=== PATIENT | male | born 1980 | race Caucasian/White ===

== ENCOUNTER 2016-12-04 13:56 | Inpatient (IN) | payer OTHER ==
[2016-12-04] MEDS ORDERED: LIDOCAINE W/ SODIUM BICARB 0.5 ML SYR ONE ×2 (15:08→15:09)
[2016-12-04] MEDS ORDERED: Lactated Ringers 1,000 ML PRIMARY IV ONE (15:09)
[2016-12-04] MEDS ORDERED: Sodium Chloride 0.9% 100 ML IV ONE (15:57)
[2016-12-04] MEDS ORDERED: ERTAPENEM 1 GM VIAL ONE (15:57)
--- NOTE | 2016-12-04 15:58 | DI ---
CT ABD W/CN AND PELVIS W/CN,12/04/2016 1:59 PM: Clinical History: Abdominal pain Previous Exam: None available. Findings: Multiple helically acquired CT images are obtained through the abdomen and pelvis following the intra venous demonstration of contrast, and demonstrate mild diffuse fatty infiltration of the liver. The l blake bases are clear. The adrenals, kidneys, spleen, pancreas and gallbladder are unremarkable. There is prominence of the appendix and terminal ileum with a large amount of surrounding fat strandi ng. The appendix itself measures 8 mm. There is some free fluid within the deep pelvis worrisome for a ruptured appendix. There is an area w hich is bounded by the cecum, the appendix and the ileum with some surrounding enhancement. This area measures approximately 2.4 cm in diameter The urinary bladder is unremarkable. The skeletal structures are unremarkable except for some very mi ld degenerative changes of the lumbar spine. Impression: Acute appendicitis with a likely 2.4 cm abscess in the right lower quadrant.
[2016-12-04] MEDS ORDERED: IPRATROPIUM/ALBUTEROL SULFATE 3 ML NEB NEB ONE ×2 (16:01→16:02)
[2016-12-04] MEDS ORDERED: fentaNYL Inj 100 MCG/2 ML VIAL IVP PRN (16:05)
[2016-12-04] MEDS ORDERED: ONDANSETRON 4 MG/2 ML VIAL IVP PRN ×3 (16:05→19:05)
[2016-12-04] MEDS ORDERED: NORMAL SALINE 10 ML SYRINGE FLUSH IVP PRN ×2 (16:05→17:26)
[2016-12-04] MEDS ORDERED: ATROPINE SULFATE 0.4 MG/1 ML VIAL IVP PRN (16:05)
[2016-12-04] MEDS ORDERED: Ondansetron ODT Tab 8 MG TAB PO PRN (16:05)
[2016-12-04] MEDS ORDERED: MIDAZOLAM 5 MG/1 ML ONE (16:10)
[2016-12-04] MEDS ORDERED: fentaNYL Inj 250 MCG/5 ML VIAL ONE (16:10)
[2016-12-04] MEDS ORDERED: KETAMINE 100 MG/1 ML - 5 ML ONE (16:11)
[2016-12-04] MEDS ORDERED: DEXAMETHASONE PF 10 MG/1 ML VIAL ONE (16:13)
[2016-12-04] MEDS ORDERED: Lactated Ringers 1,000 ML PRIMARY IV SCH (16:15)
[2016-12-04] MEDS ORDERED: SUCCINYLCHOLINE CHLORIDE 20 MG/1 ML - 10 ML ONE (16:18)
[2016-12-04] MEDS ORDERED: ROCURONIUM 10 MG/1 ML - 5 ML VIAL IVP ONE (16:18)
--- NOTE | 2016-12-04 16:21 | PDOC ---
History and Physical - History of Present Illness Date and Time of Service: 10/04/2016 at 1615 Chief Complaint: Acute appendicitis History of Present Illness: There is a 36-year-old male whose a 10 day history of right lower quadrant abdominal pain. Is start off with feeling like he is constipated. He subsequently has developed more significant pain. He went into the walk-in clinic where he is found to have a tender the right lower quadrant. Subsequent he had a CT scan. The CT scan showed acute appendicitis. Patient denies fever or chills. Patient's white count was 12.4. He had normal hemoglobin. All labs were otherwise unremarkable. Past Medical History Medical History: Patient denies any significant medical problems. He states he has a touch asthma but does not use any rescue inhalers Tobacco Use: Never Smoker Substance Use Type: None Medication / Allergies Allergies/Adverse Reactions: Allergies Allergy/AdvReac Type Severity Reaction Status Date / Time No Known Drug Allergies Allergy NOT Verified 12/04/16 15:18 APPLICABLE Review of Systems - Constitutional Constitutional: REPORTS: Negative System Review - Ear/Nose Exam Ear/Nose Exam: REPORTS: Negative System Review - Respiratory Respiratory: DENIES: Negative System Review, Cough, Sputum, Dyspnea At Rest, Dyspnea with Exertion, Pleuritic Pain, Hemoptysis, Wheezing, Other, See HPI - Cardiovascular Cardiovascular: DENIES: Negative System Review, Chest Pain, Edema, Syncope, Palpitations, Orthopnea, Paroxysmal Nocturnal Dyspnea, Other, See HPI - Gastrointestinal Gastrointestinal / Abdominal: DENIES: Negative System Review, Nausea, Vomiting, Diarrhea, Constipation, Abdominal Pain, Bloody Stool, Poor Appetite, Heartburn, Regurgitation, Bloating, Lactose Intolerance, Melena, Bright Red Blood Per Rectum, Other, See HPI - Musculoskeletal Musculoskeletal: REPORTS: Negative System Review - Neurological Neurologic: REPORTS: Negative System Review - Psychiatric Psychiatric: DENIES: Anhedonia, Anxiety, Depressed, Hopelessness, Hospitalization, Negative System Review, Other, Panic, Sadness, See HPI, Suicidality, Tearfullness Exam - Vitals Vital Signs: Vital Signs Temperature 99.5 F Temperature Source Temporal Artery Scan Pulse Rate 76 Respiratory Rate 18 Blood Pressure 138/90 Oxygen Delivery Method Room Air Height 6 ft 5 in Weight 106.594 kg - Head Head Exam: POSITIVE: Normal Inspection, Normocephalic - Eye Eye Exam: POSITIVE: Normal Appearance, PERRL, EOMI, No Scleral Icterus - Neck Neck Exam: POSITIVE: Full ROM, No Tenderness - Respiratory Respiratory Exam: POSITIVE: Clear to Auscultation - Bilaterally, Breathing Non Labored - Cardiovascular Cardiovascular Exam: POSITIVE: RRR, No Murmur - GI/Abdominal GI/Abdominal Exam: POSITIVE: Non Distended, Firm, Positive for RUQ Pain, No Hepatomegaly, No Splenomegaly - Rectal Rectal Exam: POSITIVE: Deferred - External Exam: POSITIVE: Deferred Exam: POSITIVE: Deferred - Extremities Extremities Exam: POSITIVE: Full ROM, Normal Capillary Refill, No Clubbing Present, No Edema Present - Back Back Exam: POSITIVE: Normal Inspection - Neurological Neurological Exam: POSITIVE: Alert, Oriented x 3, Reflexes Normal, CN II-XII Intact Assessment and Plan - Patient Problems (1) Acute appendicitis with localized peritonitis Current Visit: Yes Status: Acute - Assessment / Plan Additional Assessment/Plan Details: Since patient has been having pain for 10 days and amount of inflammation seen on the CT scan I think the patient needs to undergo an appendectomy. Risks benefits surgery of been explained to him he understands these. Will get him set up at first available time. Patient given 1 g of Invanz
[2016-12-04] MEDS ORDERED: BUPivacaine Liposome/PF (Exparel) Inj 20ml vial INFIL ONE (16:42)
[2016-12-04] MEDS ORDERED: NEOSTIGMINE 1 MG/1 ML - 10 ML ONE (17:18)
[2016-12-04] MEDS ORDERED: GLYCOPYRROLATE 0.2 MG/1 ML VIAL ONE (17:18)
[2016-12-04] MEDS ORDERED: HYDROcodone-APAP 7.5 MG-325 MG TABLET PO PRN (17:26)
[2016-12-04] MEDS ORDERED: NALOXONE 0.4 MG/1 ML VIAL IVP PRN ×2 (17:26→19:05)
[2016-12-04] MEDS ORDERED: KETOROLAC 15 MG/1 ML VIAL IVP PRN (17:26)
[2016-12-04] MEDS ORDERED: MORPHINE SULFATE 2 MG/1 ML IVP PRN ×2 (17:26→19:05)
[2016-12-04] MEDS ORDERED: D5-LR 1,000 ML PRIMARY IV SCH (17:30)
[2016-12-04] MEDS ORDERED: Ertapenem Inj 1 GM in Sodium Chloride 0.9% 100 ML IV SCH (17:30)
--- NOTE | 2016-12-04 17:37 | GEN.OPNOTE ---
Operative Note Surgery Date: 12/04/16 Preoperative Diagnosis: Acute appendicitis with localized peritonitis Postoperative Diagnosis: A ruptured appendix with localized peritonitis Procedure: Appendectomy Surgeon: Americo Brown MD Anesthesia Provider: Susan Potts CRNA Anesthesia Type: General Estimated Blood Loss (mL): 5 Fluids: 1 g of Invanz given preoperatively. Lactated Ringer's please see anesthesia notes in EMR for exact dose Pathology: Appendix was sent for pathology Indications: Patient's been having 10 days of abdominal pain. CT scan shows acute appendicitis with what appears be a rupture the tip of the appendix is a very small abscess formation and also a lot of inflammation but no phlegmon Findings: I ruptured appendix with small abscess Complications: None Operative Summary: Patient is brought in the operating room. Placed supine position. Prepped draped sterile fashion. Timeout performed per protocols. I then made a standard right lower quadrant appendectomy incision. Hemostased and left cautery dissection to Robin Ks tissue left cautery. Did a muscle-splitting incision. Posterior sheath was opened transversely. Carlos retractor was placed. Small bowel swept all way. Patient had some inflammation and had a small abscess walled off by the omentum these adhesions were taken down the fluid was aspirated out. I then followed and inflammation appendix at full itself with back upon itself and was walled off by this terminal ileum. I bluntly dissected this all free exposing the appendix. The mesoappendix was clamped divided and ligated. I follow the mesoappendix down to the base of the appendix. I doubly clamped the appendiceal stump stump and divided the appendix. Appendix is handed off as a surgical specimen. I then tied off the appendix with 0 Vicryl suture. The very tip of the appendix was oversewn with 3 -0 Vicryl continuous running suture. I irrigated until clear. At this point sponge and instrument and needle counts were correct. The posterior sheath was closed with 0 Vicryl contents running suture. Anterior fascia closed with 0 Prolene condition running suture. Skin reapproximated skin anam. I infiltrated 20 mg of Exoprel for postoperative pain control. See well the were no complications Patient Problems - Patient Problem List (1) Acute appendicitis with localized peritonitis Current Visit: Yes Status: Acute
[2016-12-04] MEDS ORDERED: HYDROmorphone 2 MG/1 ML ONE (17:53)
[2016-12-04] MEDS: HYDROmorphone 2 MG/1 ML IVP PRN ×3 (17:55→18:10)
[2016-12-04] MEDS: D5-LR 1,000 ML PRIMARY IV SCH (20:54)
[2016-12-04] MEDS: KETOROLAC 15 MG/1 ML VIAL IVP PRN (20:55)
[2016-12-04] MEDS: HYDROcodone-APAP 7.5 MG-325 MG TABLET PO PRN (21:10)
[2016-12-05] MEDS: HYDROcodone-APAP 7.5 MG-325 MG TABLET PO PRN ×4 (02:20→18:27)
[2016-12-05 06:18] LABS: BLOOD UREA NITROGEN 8 mg/dL (7-22); BUN/CREATININE RATIO 13.33 (6-20); CALCIUM 8.9 mg/dL (8.7-10.7); EST GLOMERULAR FILTRATION > 60 (>60 ml/min/1.73m(2))
[2016-12-05 06:58] LABS: HEMATOCRIT 37.5 % (42.0-52.0); HEMOGLOBIN 12.7 g/dL (14.0-18.0); MEAN CORPUSCULAR HEMOGLOBIN 28.5 PG (27-31); MEAN CORPUSCULAR HGB CONC 33.9 g/dL (33-37); MEAN CORPUSCULAR VOLUME 84.3 FL (80-90); RED BLOOD COUNT 4.45 10^6/uL (4.70-6.10)
[2016-12-05 06:59] LABS: BASOPHILS # (AUTO) 0.01 10*3/UL; BASOPHILS % (AUTO) 0.1 % (0-1); EOSINOPHILS # (AUTO) 0 10*3/UL; EOSINOPHILS % (AUTO) 0 % (0-8); LYMPHOCYTES # (AUTO) 0.79 10*3/uL; MEAN PLATELET VOLUME 9.4 FL (7.4-12.2); MONOCYTES # (AUTO) 1.09 10*3/UL (0.3-0.8); MONOCYTES % (AUTO) 6.6 % (5-15); NEUTROPHILS # (AUTO) 14.63 10*3/UL; NEUTROPHILS % (AUTO) 88.3 % (50-80); PLATELET MORPHOLOGY COMMENT NORMAL MORPHOLOGY (NORM); RBC MORPHOLOGY COMMENT NORMAL MORPHOLOGY (NORM)
[2016-12-05] MEDS: D5-LR 1,000 ML PRIMARY IV SCH (06:59)
[2016-12-05 07:00] LABS: WBC MORPHOLOGY COMMENT SEE COMMENTS (NORM)
[2016-12-05] MEDS: KETOROLAC 15 MG/1 ML VIAL IVP PRN ×2 (07:00→18:26)
--- NOTE | 2016-12-05 08:58 | PDOC(PROG) ---
Subjective Post Op Day: postop day 1 Pain Management: PO Raya Catheter: No Flatus: Yes Diet: Regular Date and Time of Service: 12/05/2016 at 9 AM Interval History: Patient has she feels a lot better. Having no problems Objective : Data - Labs CBC and BMP: 12/05/16 06:01 12/05/16 06:01 Labs - Last 24 Hours: Laboratory Results 12/05/16 Range/Units 06:01 WBC 16.56 H (4.8-10.8) 10^3/uL RBC 4.45 L (4.70-6.10) 10^6/uL Hgb 12.7 L (14.0-18.0) g/dL Hct 37.5 L (42.0-52.0) % MCV 84.3 (80-90) FL MCH 28.5 (27-31) PG MCHC 33.9 (33-37) g/dL RDW Std Deviation 37.5 L (39-50) fL RDW Coeff of Ivis 12.4 (11.5-14.5) % Plt Count 355 H (140-350) 10*3/uL MPV 9.4 (7.4-12.2) FL Immature Gran % (Auto) 0.2 (0-5) % Neut % (Auto) 88.3 H (50-80) % Lymph % (Auto) 4.8 L (10-50) % [place] % (Auto) 6.6 (5-15) % Eos % (Auto) 0 (0-8) % Baso % (Auto) 0.1 (0-1) % Immature Gran # (Auto) 0.04 10*3/UL Neut # (Auto) 14.63 10*3/UL Lymph # (Auto) 0.79 10*3/uL [place] # (Auto) 1.09 H (0.3-0.8) 10*3/UL Eos # (Auto) 0 10*3/UL Baso # (Auto) 0.01 10*3/UL WBC Morphology Comment See comments (NORM) Plt Morphology Comment Normal morphology (NORM) RBC Morph Comment Normal morphology (NORM) Sodium 132 L (135-145) meq/L Potassium 4.4 (3.8-5.2) meq/L Chloride 98 (98-112) meq/L Carbon Dioxide 24 (23-33) meq/L Anion Gap 10 (5-20) BUN 8 (7-22) mg/dL Creatinine 0.6 L (0.70-1.50) mg/dL Estimated GFR > 60 (>60 ml/min/1.73m(2)) BUN/Creatinine Ratio 13.33 (6-20) Glucose 157 H (78-110) mg/dL Calculated Osmolality 274.0 (267-292) mOsm/kg Calcium 8.9 (8.7-10.7) mg/dL - Vital Signs Vital Signs and I&O: Vital Signs - Last Taken Temperature 98 F 12/05/16 08:13 Pulse Rate 63 12/05/16 08:13 Respiratory Rate 16 12/05/16 08:13 Blood Pressure 124/78 12/05/16 08:13 Pulse Ox 93 12/05/16 08:13 Intake and Output (24hr x 4 totals) 12/03/16 12/04/16 12/05/16 12/06/16 05:59 05:59 05:59 05:59 Intake Total 4163 Output Total 1210 300 Balance 2953 -300 Objective : Exam - General General Appearance: No Acute Distress, Cooperative - GI/Abdominal GI/Abdominal Exam: Non Tender, Non Distended, Soft Assessment and Plan - Patient Problems (1) Acute appendicitis with localized peritonitis Current Visit: Yes Status: Acute - Assessment / Plan Additional Assessment/Plan Details: Since patient had a small abscess and a perforated appendix would like to having on antibiotics until white count is normal and switching to orals
--- NOTE | 2016-12-05 10:57 | CRNA.PROGR ---
Anesthesia Note Anesthesia Progress Note: Patient had just finished showering. No nausea, pain controlled, states throat a little sore. States he's Amnestic re surgical events. Laboratory Results 12/05/16 Range/Units 06:01 WBC 16.56 H (4.8-10.8) 10^3/uL RBC 4.45 L (4.70-6.10) 10^6/uL Hgb 12.7 L (14.0-18.0) g/dL Hct 37.5 L (42.0-52.0) % MCV 84.3 (80-90) FL MCH 28.5 (27-31) PG MCHC 33.9 (33-37) g/dL RDW Std Deviation 37.5 L (39-50) fL RDW Coeff of Ivis 12.4 (11.5-14.5) % Plt Count 355 H (140-350) 10*3/uL MPV 9.4 (7.4-12.2) FL Immature Gran % (Auto) 0.2 (0-5) % Neut % (Auto) 88.3 H (50-80) % Lymph % (Auto) 4.8 L (10-50) % [place] % (Auto) 6.6 (5-15) % Eos % (Auto) 0 (0-8) % Baso % (Auto) 0.1 (0-1) % Immature Gran # (Auto) 0.04 10*3/UL Neut # (Auto) 14.63 10*3/UL Lymph # (Auto) 0.79 10*3/uL [place] # (Auto) 1.09 H (0.3-0.8) 10*3/UL Eos # (Auto) 0 10*3/UL Baso # (Auto) 0.01 10*3/UL WBC Morphology Comment See comments (NORM) Plt Morphology Comment Normal morphology (NORM) RBC Morph Comment Normal morphology (NORM) Sodium 132 L (135-145) meq/L Potassium 4.4 (3.8-5.2) meq/L Chloride 98 (98-112) meq/L Carbon Dioxide 24 (23-33) meq/L Anion Gap 10 (5-20) BUN 8 (7-22) mg/dL Creatinine 0.6 L (0.70-1.50) mg/dL Estimated GFR > 60 (>60 ml/min/1.73m(2)) BUN/Creatinine Ratio 13.33 (6-20) Glucose 157 H (78-110) mg/dL Calculated Osmolality 274.0 (267-292) mOsm/kg Calcium 8.9 (8.7-10.7) mg/dL Vital Signs (24 hrs) Temp Pulse Pulse Resp BP BP Pulse Ox 12/05/16 08:13 98 F 63 16 124/78 93 12/05/16 04:36 96 12/05/16 04:35 97.8 F 76 16 109/62 97 12/05/16 00:17 97.4 F 62 20 105/68 96 12/04/16 21:00 98.3 F 72 24 120/74 93 12/04/16 20:00 97.7 F 71 18 124/85 95 12/04/16 19:00 98.0 F 77 20 126/81 98 12/04/16 18:55 98.1 F 62 20 132/83 12/04/16 18:30 98.1 F 62 20 132/83 99 12/04/16 18:15 98.7 F 58 L 14 126/80 12/04/16 18:05 60 14 128/84 12/04/16 18:00 57 L 16 132/84 12/04/16 17:55 61 16 131/82 12/04/16 17:50 60 18 130/80 12/04/16 17:46 96.9 F 66 18 129/81 12/04/16 17:42 67 18 129/81 12/04/16 17:37 96.8 F 73 22 115/87 12/04/16 15:25 99.5 F 76 18 138/90 No apparent anesthetic difficulties.
[2016-12-05] MEDS: Ertapenem Inj 1 GM in Sodium Chloride 0.9% 100 ML IV SCH (17:33)
[2016-12-05] MEDS ORDERED: MAGNESIUM 400 MG/5 ML - 30 ML (MILK OF MAGNESIA) PO PRN (18:24)
[2016-12-05] MEDS: DOCUSATE 100 MG CAPSULE PO SCH ×2 (18:27→21:54)
[2016-12-06] MEDS: HYDROcodone-APAP 7.5 MG-325 MG TABLET PO PRN ×7 (01:45→22:09)
[2016-12-06] MEDS: KETOROLAC 15 MG/1 ML VIAL IVP PRN (01:45)
[2016-12-06 06:56] LABS: RED BLOOD COUNT 4.29 10^6/uL (4.70-6.10)
[2016-12-06 06:57] LABS: HEMATOCRIT 36.7 % (42.0-52.0); HEMOGLOBIN 12.2 g/dL (14.0-18.0); MEAN CORPUSCULAR HEMOGLOBIN 28.4 PG (27-31); MEAN CORPUSCULAR HGB CONC 33.2 g/dL (33-37); MEAN CORPUSCULAR VOLUME 85.5 FL (80-90)
[2016-12-06 06:58] LABS: BASOPHILS # (AUTO) 0.03 10*3/UL; BASOPHILS % (AUTO) 0.2 % (0-1); EOSINOPHILS # (AUTO) 0.21 10*3/UL; EOSINOPHILS % (AUTO) 1.5 % (0-8); LYMPHOCYTES # (AUTO) 0.62 10*3/uL; MEAN PLATELET VOLUME 9.1 FL (7.4-12.2); MONOCYTES # (AUTO) 0.98 10*3/UL (0.3-0.8); MONOCYTES % (AUTO) 6.9 % (5-15); NEUTROPHILS # (AUTO) 12.25 10*3/UL; NEUTROPHILS % (AUTO) 86.5 % (50-80); PLATELET MORPHOLOGY COMMENT NORMAL MORPHOLOGY (NORM); RBC MORPHOLOGY COMMENT NORMAL MORPHOLOGY (NORM)
[2016-12-06 06:59] LABS: WBC MORPHOLOGY COMMENT SEE COMMENTS (NORM)
[2016-12-06] MEDS: NORMAL SALINE 10 ML SYRINGE FLUSH IVP PRN ×4 (08:14→17:49)
[2016-12-06] MEDS ORDERED: KETOROLAC 15 MG/1 ML VIAL IVP SCH (08:15)
[2016-12-06] MEDS: DOCUSATE 100 MG CAPSULE PO SCH ×2 (08:59→20:24)
--- NOTE | 2016-12-06 10:55 | PDOC(PROG) ---
Subjective Post Op Day: 2 Pain Management: PO Raya Catheter: No Flatus: Yes Diet: Regular Ambulating: Yes Date and Time of Service: 12/06/2016. Patient seen at 8 AM. Interval History: The floor called and said he felt constipated last night. Started some stool softeners. Had a temperature of 102 early this morning. He felt feverish and had chills. This morning he feels like he had some chills which resolved. His temperature dropped to 99 but is now up to 100.5. He does feel warm. He has tolerated some regular food. He is passing gas. He has not yet had a bowel movement. He denies nausea or vomiting. He is getting the Toradol and intermittent pain pills. He reports his pain control is good. His white count is still elevated at 14,000. With an elevated white count and a fever last night he is not yet ready to be discharged home. We discussed that in detail. Objective : Data - Labs CBC and BMP: 12/06/16 05:46 12/05/16 06:01 Labs - Last 24 Hours: Laboratory Results 12/06/16 Range/Units 05:46 WBC 14.16 H (4.8-10.8) 10^3/uL RBC 4.29 L (4.70-6.10) 10^6/uL Hgb 12.2 L (14.0-18.0) g/dL Hct 36.7 L (42.0-52.0) % MCV 85.5 (80-90) FL MCH 28.4 (27-31) PG MCHC 33.2 (33-37) g/dL RDW Std Deviation 39.6 (39-50) fL RDW Coeff of Ivis 12.9 (11.5-14.5) % Plt Count 344 (140-350) 10*3/uL MPV 9.1 (7.4-12.2) FL Immature Gran % (Auto) 0.5 (0-5) % Neut % (Auto) 86.5 H (50-80) % Lymph % (Auto) 4.4 L (10-50) % [place] % (Auto) 6.9 (5-15) % Eos % (Auto) 1.5 (0-8) % Baso % (Auto) 0.2 (0-1) % Immature Gran # (Auto) 0.07 10*3/UL Neut # (Auto) 12.25 10*3/UL Lymph # (Auto) 0.62 10*3/uL [place] # (Auto) 0.98 H (0.3-0.8) 10*3/UL Eos # (Auto) 0.21 10*3/UL Baso # (Auto) 0.03 10*3/UL WBC Morphology Comment See comments (NORM) Plt Morphology Comment Normal morphology (NORM) RBC Morph Comment Normal morphology (NORM) - Vital Signs Vital Signs and I&O: Vital Signs - Last Taken Temperature 99.3 F 12/06/16 08:18 Pulse Rate 87 12/06/16 08:18 Respiratory Rate 20 12/06/16 08:18 Blood Pressure 132/81 12/06/16 08:18 Pulse Ox 94 12/06/16 08:18 Intake and Output (24hr x 4 totals) 12/04/16 12/05/16 12/06/16 12/07/16 05:59 05:59 05:59 05:59 Intake Total 4163 2838 250 Output Total 1210 1820 Balance 2953 1018 250 Objective : Exam - General General Appearance: No Acute Distress, Cooperative - Respiratory Respiratory Exam: Clear to Auscultation - Bilaterally, Breathing Non Labored - Cardiovascular Cardiovascular Exam: RRR, No Murmur - GI/Abdominal GI/Abdominal Exam: Normal Bowel Sounds, Non Distended, Soft Additional GI/Abdominal Exam Details: The dressing is clean and dry and intact. The abdomen has some diffuse tenderness. Predominantly right lower quadrant. - Neurological Neurological Exam: Alert, Oriented x 3 - Psychiatric Psychiatric Exam: Normal Affect, Normal Mood - Integumentary Integumentary Exam: Normal Color, Warm Assessment and Plan - Patient Problems (1) Acute appendicitis with localized peritonitis Current Visit: Yes Status: Acute Priority: High Diagnosis Date: 12/04/16 Comment: Patient is postoperative day #2. He actually had a ruptured appendicitis with a small abscess. He still had a fever to 102 last night. White count remains elevated. He is not feeling all that well. He is not ready to be discharged home yet. We'll continue IV antibiotics. Stool softeners and milk of magnesia have been ordered. We'll check a CBC in the morning. Criteria for discharge will be afebrile 24 hours and a normal white count. We discussed that in detail and the patient agrees to proceed as outlined.
[2016-12-06] MEDS ORDERED: POLYETHYLENE GLYCOL 3350 17 GM POWDER PO PRN (11:01)
[2016-12-06] MEDS ORDERED: MORPHINE SULFATE 2 MG/1 ML IVP PRN (11:01)
[2016-12-06] MEDS: KETOROLAC 15 MG/1 ML VIAL IVP SCH ×2 (14:14→19:23)
[2016-12-06] MEDS: Ertapenem Inj 1 GM in Sodium Chloride 0.9% 100 ML IV SCH (17:49)
[2016-12-07] MEDS: KETOROLAC 15 MG/1 ML VIAL IVP SCH ×2 (01:47→08:05)
[2016-12-07] MEDS: HYDROcodone-APAP 7.5 MG-325 MG TABLET PO PRN ×2 (05:09→10:44)
[2016-12-07 05:36] LABS: BLOOD UREA NITROGEN 11 mg/dL (7-22); BUN/CREATININE RATIO 13.75 (6-20); CALCIUM 8.1 mg/dL (8.7-10.7); EST GLOMERULAR FILTRATION > 60 (>60 ml/min/1.73m(2))
[2016-12-07 07:02] LABS: HEMATOCRIT 36.2 % (42.0-52.0); HEMOGLOBIN 12.2 g/dL (14.0-18.0); MEAN CORPUSCULAR HEMOGLOBIN 28.6 PG (27-31); MEAN CORPUSCULAR HGB CONC 33.7 g/dL (33-37); MEAN PLATELET VOLUME 9.1 FL (7.4-12.2); RED BLOOD COUNT 4.26 10^6/uL (4.70-6.10)
[2016-12-07 07:03] LABS: BASOPHILS % (AUTO) 0.3 % (0-1); EOSINOPHILS # (AUTO) 0.16 10*3/UL; EOSINOPHILS % (AUTO) 1.2 % (0-8); LYMPHOCYTES # (AUTO) 0.54 10*3/uL; MONOCYTES # (AUTO) 1.12 10*3/UL (0.3-0.8); MONOCYTES % (AUTO) 8.6 % (5-15); NEUTROPHILS # (AUTO) 11.17 10*3/UL; NEUTROPHILS % (AUTO) 85.4 % (50-80)
[2016-12-07 07:04] LABS: BASOPHILS # (AUTO) 0.04 10*3/UL; PLATELET MORPHOLOGY COMMENT NORMAL MORPHOLOGY (NORM); RBC MORPHOLOGY COMMENT NORMAL MORPHOLOGY (NORM); WBC MORPHOLOGY COMMENT NORMAL MORPHOLOGY (NORM)
[2016-12-07 07:42] VITALS: RESP 14; TEMP 98.9
[2016-12-07] MEDS: DOCUSATE 100 MG CAPSULE PO SCH (08:04)
--- NOTE | 2016-12-07 10:57 | DCSUMMARY ---
Discharge Summary Admit Date: 12/04/16 Discharge Date: 12/07/16 Admitting Diagnosis: acute appendicitis. Status post appendectomy. Discharge Diagnosis: Acute appendicitis. Rupture with small abscess. Status post appendectomy. Primary Surgery and Date: Open appendectomy 12/04/2016 Hospital Course: Patient is a healthy 36-year-old male who was admitted with acute appendicitis. He was found to have ruptured appendicitis with a small abscess. Dr. Brown deviated an open appendectomy. He is postoperative course has been relatively unremarkable. Postoperative day 1 his white count was elevated at 16 ,000. Yesterday it was 14,000 and today it's 13,000. On the night of postoperative day 1 he had a temperature to 102. Maximum temperature in the last 24 hours is 100. He is feeling well. He is tolerating a regular diet. He is passing gas and having bowel movements. He feels much better and feels ready to go home. He is not having any fever or chills. No cough. Exam - Vitals Vital Signs: Vital Signs Temperature 98.9 F Temperature Source Temporal Artery Scan Pulse Rate [Pulse Oximeter] 95 Pulse Rate 58 Respiratory Rate 14 Blood Pressure [Left Arm] 116/80 Blood Pressure 126/80 Pulse Ox 92 Oxygen Flow Rate 2 Oxygen Delivery Method Room Air Height 6 ft 5 in Weight 108.046 kg - General General Appearance: POSITIVE: No Acute Distress, Cooperative - Respiratory Respiratory Exam: POSITIVE: Clear to Auscultation - Bilaterally, Breathing Non Labored - Cardiovascular Cardiovascular Exam: POSITIVE: RRR, No Murmur - GI/Abdominal GI/Abdominal Exam: POSITIVE: Normal Bowel Sounds, Non Distended, Soft Additional GI/Abdominal Exam Details: Incision is clean and dry and intact. [place] are in place. No signs of wound infection. Abdomen is benign with incisional tenderness. - Neurological Neurological Exam: POSITIVE: Alert, Oriented x 3 - Psychiatric Psychiatric Exam: POSITIVE: Normal Affect, Normal Mood Data Perinent Studies: CT scan showing acute appendicitis. Procedures: Open appendectomy. Patient Problems - Patient Problem List (1) Acute appendicitis with localized peritonitis Current Visit: Yes Status: Acute Diagnosis Date: 12/04/16 Priority: High Comment: Status post appendectomy. Doing well. White blood cell count is coming down. It is not quite normal but it is moving in the right direction. No fevers in the last 24 hours. I think patient is ready to be discharged home for outpatient follow-up. We'll send him home on an additional 7 days of antibiotics. He will start his outpatient antibiotics today. Patient is to follow up with Dr. Brown at the end of next week.
== END 2016-12-07 11:40 | disposition home or self-care (01) | DRG 340 ==
LOC: CT 13:56 → OPS 15:06 → MED/SURG 17:26
PROVIDERS: ADMIT Surgery; ATTEND Surgery
PROC: 0DTJ0ZZ Resection of Appendix, Open Approach (ICD-10-PCS; principal; 2016-12-04 15:30)
DX: K35.3 Acute appendicitis with localized peritonitis (principal)
CPT/HCPCS: 36415; 74177; 80048; 85025; 94150; 94640; 94761; J0330; J1100; J1170; J1335; J1885; J2250; J2710; J3010; J7050; J7120; J7620

== ENCOUNTER → 2016-12-04 | Outpatient (CLI) | payer OTHER ==
[2016-12-04 13:55] LABS: BLOOD UREA NITROGEN 9 mg/dL (7-22); BUN/CREATININE RATIO 12.85 (6-20); C-REACTIVE PROTEIN 8.7 mg/dL (0.0-0.9); EST GLOMERULAR FILTRATION > 60 (>60 ml/min/1.73m(2)); LIPASE 68 IU/L (23-300); SERUM ALBUMIN 4.4 g/dL (3.5-4.8)
[2016-12-04 14:02] LABS: HEMOGLOBIN 13.5 g/dL (14.0-18.0); MEAN CORPUSCULAR HEMOGLOBIN 28.9 PG (27-31); MEAN CORPUSCULAR HGB CONC 34.6 g/dL (33-37); MEAN CORPUSCULAR VOLUME 83.5 FL (80-90); RED BLOOD COUNT 4.67 10^6/uL (4.70-6.10)
[2016-12-04 14:03] LABS: BASOPHILS # (AUTO) 0.05 10*3/UL; BASOPHILS % (AUTO) 0.4 % (0-1); EOSINOPHILS # (AUTO) 0.08 10*3/UL; EOSINOPHILS % (AUTO) 0.7 % (0-8); LYMPHOCYTES # (AUTO) 1.16 10*3/uL; MONOCYTES # (AUTO) 1.26 10*3/UL (0.3-0.8); MONOCYTES % (AUTO) 10.4 % (5-15); NEUTROPHILS # (AUTO) 9.54 10*3/UL; NEUTROPHILS % (AUTO) 78.5 % (50-80); PLATELET MORPHOLOGY COMMENT NORMAL MORPHOLOGY (NORM); RBC MORPHOLOGY COMMENT NORMAL MORPHOLOGY (NORM); WBC MORPHOLOGY COMMENT NORMAL MORPHOLOGY (NORM)
== END ==
LOC: MOB LAB 13:04
PROVIDERS: ATTEND Physician Assistant
DX: R10.31 Right lower quadrant pain (principal)
CPT/HCPCS: 36415; 80053; 83690; 85025; 86140